=== PATIENT | female | born 1995 | race Caucasian/White ===

== ENCOUNTER 2016-12-31 06:00 | Inpatient (IN) | payer OTHER ==
[2016-12-31] MEDS ORDERED: TERBUTALINE 1 MG/ML VIAL SQ PRN (06:51)
[2016-12-31] MEDS ORDERED: OXYTOCIN 10 UNIT/ML 1 ML VIAL IM PRN (06:51)
[2016-12-31] MEDS ORDERED: METHYLERGONOVINE 0.2 MG/ML 1 ML AMP IM PRN (06:51)
[2016-12-31] MEDS ORDERED: LIDOCAINE 1% (PF) 10 MG/ML (30 ML SDV) SQ PRN (06:51)
[2016-12-31] MEDS ORDERED: CARBOPROST TROMETHAMINE 250 MCG/ML 1 ML AMP IM PRN (06:51)
[2016-12-31] MEDS ORDERED: OXYTOCIN 30 UNITS/500 ML NS 30 UNIT in SALINE 1 500ML.BAG IV SCH ×2 (07:00→18:30)
[2016-12-31 07:07] VITALS: BMI 31.3
[2016-12-31 07:12] LABS: Basophils # (A) 0.1 k/uL (0-0.2); Basophils % (A) 0 %; CH 26.6; CHCM 32.2; Eosinophils # (A) 0.2 k/uL (0-0.7); Eosinophils % (A) 1 %; HCT 39.7 % (34.0-46.0); HDW 3.23; HGB 12.4 gm/dL (11.4-16.0); Hypochromasia Slight; Luc # (Auto) 0.27; Luc % (Auto) 2; Lymphocytes # (A) 2.1 k/uL (1.0-4.8); Lymphocytes % (A) 15 %; MCH 25.9 pg (25.0-35.0); MCHC 31.3 g/dL (31.0-37.0); MCV 82.9 fL (80.0-100.0); Mean Platelet Volume 6.5; Monocytes # (A) 0.6 k/uL (0-1.0); Monocytes % (A) 5 %; Neutrophils # (A) 10.4 k/uL (1.3-7.7); Neutrophils % (A) 77 %; RDW 14.4 % (11.5-15.5); WBC 13.6 k/uL (3.8-10.6); WBC (Perox) 14.14
[2016-12-31] MEDS: LACTATED RINGERS 1,000 ML IV SCH ×3 (07:30→16:01)
[2016-12-31] MEDS: BUTORPHANOL 1 MG/ML 1 ML VIAL IV PRN ×2 (13:46→17:04)
[2016-12-31] MEDS ORDERED: SODIUM CHLORIDE 0.9% 100 ML BAG ONE (15:19)
[2016-12-31] MEDS ORDERED: fentaNYL (PF) 50 MCG/ML 5 ML AMP ONE (15:19)
[2016-12-31] MEDS ORDERED: BUPIVACAINE (PF) 0.25% 30 ML VIAL ONE (15:19)
[2016-12-31] MEDS ORDERED: ZOLPIDEM 5 MG TAB PO PRN (18:17)
[2016-12-31] MEDS ORDERED: Acetaminophen-Codeine 300-30mg TAB PO PRN ×2 (18:17)
[2016-12-31] MEDS ORDERED: diphenhydrAMINE 50 MG CAP PO PRN (18:17)
[2016-12-31] MEDS ORDERED: diphenhydrAMINE 25 MG CAP PO PRN (18:17)
[2016-12-31] MEDS ORDERED: SIMETHICONE 80 MG CHEWABLE PO PRN (18:17)
[2016-12-31] MEDS ORDERED: WITCH HAZEL 1 EACH MED..PAD TOPICAL PRN (18:17)
[2016-12-31] MEDS ORDERED: diphenhydrAMINE 50 MG/ML 1 ML VIAL IVP PRN ×2 (18:17)
[2016-12-31] MEDS ORDERED: LANOLIN CREAM 5 GM TUBE TOPICAL PRN (18:17)
[2016-12-31] MEDS ORDERED: BENZOCAINE/MENTHOL SPRAY 1 GM/SPRAY AEROSOL TOPICAL PRN (18:17)
[2016-12-31] MEDS ORDERED: HYDROCORTISONE 2.5% RECTAL CREAM 30 GM TUBE RECTAL PRN (18:17)
[2016-12-31] MEDS ORDERED: ACETAMINOPHEN TAB 325 MG TAB PO PRN (18:17)
[2016-12-31] MEDS ORDERED: MEASLES-MUMPS-RUBELLA VACC/PF 12,500 UNIT/0.5 ML VIAL SQ ONE (18:17)
--- NOTE | 2016-12-31 18:21 | P.HPOB ---
History of Present Illness H&P Date: 12/31/16 Chief Complaint: Interim postdates Patient is a 21-year-old at 40 weeks 5 days gestation arise for induction of labor. Her course was uncomplicated. She did fail her 1 hour Glucola screen but passed her 3 her ColoScreen. She did have an NST earlier this week for postdates. All questions are answered for her and risks and benefits as well as alternatives to induction of labor have been discussed. She was dilated to 1 cm 7% effaced -3 station and artificial rupture membranes was performed. Clear fluid is noted. heart tones are 120s to 140s. Pertinent labs include O+ blood type Rh antibody negative, rubella nonimmune hepatitis B surface antigen and RPR were both negative as was groupie strep. Physical exam: Heart regular, lungs clear, extremities without pain. Abdomen soft uterus is gravid. Assessment intrauterine at term. Her plan is to try not to have an epidural but may have one for analgesia. Expect vaginal delivery. Past Medical History Past Medical History: No Reported History History of Any Multi-Drug Resistant Organisms: None Reported Past Surgical History: No Surgical Hx Reported Past Anesthesia/Blood Transfusion Reactions: No Reported Reaction Past Psychological History: Anxiety, Depression Smoking Status: Current every day smoker Past Alcohol Use History: None Reported Past Drug Use History: None Reported - Past Family History Mother Family Medical History: No Reported History Medications and Allergies Home Medications Medication Instructions Recorded Confirmed Type No Known Home Medications [No 12/31/16 12/31/16 History Known Home Medications] Allergies Allergy/AdvReac Type Severity Reaction Status Date / Time No Known Allergies Allergy Verified 12/31/16 06:51 Exam Osteopathic Statement: *. No significant issues noted on an osteopathic structural exam other than those noted in the History and Physical/Consult. - Vital Signs Vital signs: Vital Signs Temp Pulse Resp BP 12/31/16 06:58 97.5 F L 127 H 16 143/97 Intake and Output 12/31/16 12/31/16 12/31/16 06:59 14:59 22:59 Intake Total 1200 Balance 1200 Intake: IV 1200 Lactated Ringers 1,000 ml 1200 @ 125 mls/hr IV .Q8H ARMANI Rx#:[id number] Other: Weight 87.997 kg - OBG Physical Exam Breast: both: normal (no masses) Abdomen: bowel sounds normal, no diffuse tenderness, no bruit present, no guarding noted, no hepatomegaly, no splenomegaly, no mass Vulva: both: normal Vagina: normal moisture, no discharge Cervix: no lesion, no discharge Uterus: normal size, normal contour Adnexa: both: normal Anus/Rectum: normal perianal skin, no rectal mass, no hemorrhoids, heme negative Results Result Diagrams: 12/31/16 07:00 Abnormal Lab Results - Last 24 Hours (Table) 12/31/16 Range/Units 07:00 WBC 13.6 H (3.8-10.6) k/uL Neutrophils # 10.4 H (1.3-7.7) k/uL
--- NOTE | 2016-12-31 18:22 | P.PROBDLV ---
Vaginal Delivery Note - . Vaginal Delivery Note: Patient progressed to complete and pushing with spontaneous vaginal delivery of a viable male over a second-degree midline laceration. Falling deliver the head a compound right hand was noted but baby was easily delivered through this baby was delivered from right occiput anterior position. Once baby was delivered mouth nares were bulb suctioned and baby was placed on mother's abdomen where the umbilical cord was clamped cut usual fashion. Placenta was then delivered intact and Pitocin was added to the IV. scores and weight are both pending. Midline laceration was repaired with 3-0 Vicryl in usual fashion following 1% Xylocaine for analgesia. Both mother and baby currently appear stable following delivery.
[2016-12-31] MEDS: SENNOSIDES-DOCUSATE SODIUM 1 EACH TAB PO SCH (20:14)
[2017-01-01] MEDS: IBUPROFEN 600 MG TAB PO PRN ×2 (06:07→13:19)
[2017-01-01] MEDS ORDERED: DIPH,PERTUS(ACELL)TETVAC-LF 0.5 ML VIAL IM ONE (08:00)
[2017-01-01] MEDS: SENNOSIDES-DOCUSATE SODIUM 1 EACH TAB PO SCH ×2 (08:00→20:08)
--- NOTE | 2017-01-01 09:24 | P.PNOBGVD ---
Subjective - Subjective Principal diagnosis: day 1 Interval history: Patient is doing very well day 1. She is involuting, voiding and she is tolerating a diet. She voices no complaints this morning. Vital signs stable afebrile. Heart regular, lungs clear, extremities without pain. Abdomen is soft uterus is firm lochia is reported be light. Assessment post day 1. Plan continue current care. Likely discharge home tomorrow. Patient reports: Reports appetite normal, Reports voiding normally, Reports pain well controlled, Reports ambulating normally : doing well Objective - Latest Vital Signs Latest vital signs: Vital Signs Temp Pulse Resp BP BP Pulse Ox 01/01/17 04:00 98.7 F 81 16 91/51 96 12/31/16 23:50 98.3 F 81 16 113/57 12/31/16 20:21 97.3 F L 78 16 109/64 12/31/16 19:51 97.3 F L 101 H 16 114/67 12/31/16 19:23 97.5 F L 80 16 111/60 12/31/16 19:08 97.1 F L 80 16 120/56 12/31/16 18:53 81 16 126/67 12/31/16 18:36 83 16 107/57 12/31/16 18:23 97.2 F L 77 14 102/52 Intake and Output 12/31/16 01/01/17 01/01/17 22:59 06:59 14:59 Other: # Voids 1 1 - Exam Lungs: bilateral: normal Chest: Normal S1, Normal S2 Extremities: Present: normal Abdomen: Present: normal appearance, soft Uterus: Present: normal, firm
[2017-01-02 00:28] VITALS: RESP 16
--- NOTE | 2017-01-02 07:44 | P.DS ---
Providers Date of admission: 12/31/16 06:47 Expected date of discharge: 01/02/17 Attending physician: Garfield Serra Primary care physician: Stated None Procedures: Patient is doing very well day 2. She is ambulating, voiding, and she is tolerating her diet. She voices no complaints her vital signs are stable and she is afebrile. Heart regular, lungs clear, extremities without pain. Abdomen is soft uterus is firm below the umbilicus and lochia is reported be light. Assessment day 2. Plan discharged home follow up me in 6 weeks. Patient Condition at Discharge: Good Plan - Discharge Summary Discharge Medication List No Known Home Medications [No Known Home Medications] 12/31/16 [History] Follow up Appointment(s)/Referral(s): Garfield Serra DO [Doctor of Osteopathic Medicine] - 6 Weeks Activity/Diet/Wound Care/Special Instructions: Routine vaginal discharge instructions provided Discharge Disposition: HOME SELF-CARE
[2017-01-02 08:05] VITALS: BP 123/61; PULSE 75; TEMP 98.3
[2017-01-02] MEDS: SENNOSIDES-DOCUSATE SODIUM 1 EACH TAB PO SCH (08:10)
== END 2017-01-02 14:56 | disposition home or self-care (01) | DRG 775 ==
LOC: 4FBP 06:47
PROVIDERS: ADMIT Obstetrics & Gynecology; ATTEND Obstetrics & Gynecology
PROC: 10E0XZZ Delivery of Products of Conception, External Approach (ICD-10-PCS; principal; 2016-12-31)
PROC: 0KQM0ZZ Repair Perineum Muscle, Open Approach (ICD-10-PCS; 2016-12-31)
PROC: 10907ZC Drainage of Amniotic Fluid, Therapeutic from Products of Conception, Via Natural or Artificial Opening (ICD-10-PCS; 2016-12-31)
PROC: 3E033VJ Introduction of Other Hormone into Peripheral Vein, Percutaneous Approach (ICD-10-PCS; 2016-12-31)
PROC: 3E00X4Z Introduction of Serum, Toxoid and Vaccine into Skin and Mucous Membranes, External Approach (ICD-10-PCS; 2016-12-31)
PROC: 00HU33Z Insertion of Infusion Device into Spinal Canal, Percutaneous Approach (ICD-10-PCS; 2016-12-31)
PROC: 3E0R3CZ (ICD-10-PCS; 2016-12-31)
PROC: 3E0234Z Introduction of Serum, Toxoid and Vaccine into Muscle, Percutaneous Approach (ICD-10-PCS; 2017-01-01)
DX: O48.0 Post-term pregnancy (principal); O70.1 Second degree perineal laceration during delivery; Z23 Encounter for immunization; Z37.0 Single live birth; Z3A.40 40 weeks gestation of pregnancy
CPT/HCPCS: 85025; 86850; 86900; 86901; 88307; 90471; 90707; 90715